=== PATIENT | female | born 1940 | race Caucasian/White ===

== ENCOUNTER 2016-12-05 05:31 | Day surgery (SDC) | payer OTHER ==
[~2016-12-05] VITALS: Ht 154.9 cm; Wt 49.4 kg
--- NOTE | ~2016-12-05 | S ---
[facility] [address] [place] [address] SURGICAL PATH RPT PROCEDURE Name: ADRY MELENDREZ Room #: [place] [facility] [place].#: [id number] Admission: 12/05/16 Date of : 36 Discharge: 12/05/16 Report #: [id number] Path Case #: [id number] PATHOLOGY REPORT COLLECTION DATE: 12/05/2016 RECEIVED DATE: 12/05/2016 SUBMITTING PHYS: Dr. Joe Douglass OTHER PHYS: Dr. Mariusz Glover SPECIMEN(S) RECEIVED: A.Lesion left thigh B.Left inguinal lymph node * * * * * * * * * * * * FINAL DIAGNOSIS: A. 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 - EXTENSIVE LYMPH-VASCULAR SPACE INVASION PRESENT. - Margins of resection free of malignancy. B. 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 SYNOPTIC CANCER STAGING REPORT Specimen Site: Skin structure Histologic Type: Bennington Cell Carcinoma SPECIMEN Procedure: Excision Macroscopic Tumor: Present Primary Tumor Site: Skin Skin of lower limb and hip: left thigh Primary Tumor Site Laterality: Left EXTENT Tumor Size: Greatest dimension (cm): 3.3 Tumor Thickness: Thickness (mm): 11 MARGINS Peripheral Margins: Uninvolved by carcinoma Distance of Carcinoma From Closest Margin: Specify (mm): 10 Specify Location(s), if possible: Specify margin(s): 3:00 Deep Margin: Uninvolved by carcinoma Distance of Carcinoma From Closest Margin: Specify (mm): 6 Specify Location(s), if possible: Specify Margin(s): deep ACCESSORY FINDINGS Lymph-Vascular Invasion: Present Invasion of Bone, Muscle, Fascia, or Cartilage: Not applicable [facility] [address] [place] [address] SURGICAL PATH RPT PROCEDURE Name: ADRY MELENDREZ ANN Room #: [place] [facility] [place].R.#: [id number] Admission: 12/05/16 Date of : 36 Discharge: 12/05/16 Report #: [id number] Path Case #: [id number] (e.g., for superficial biopsy) Mitotic Rate: Specify per mm2: 4 Tumor Infiltrating Lymphocytes: Present, nonbrisk Tumor Growth Pattern: Nodular Presence of Second Malignancy: Present: additional nodules of Bennington cell carcinoma LYMPH NODES (REQUIRED ONLY IF LYMPH NODES ARE PRESENT IN THE SPECIMEN) Number of [place] Nodes Examined: Specify: 0 Total Number of Nodes Examined (sentinel and nonsentinel): Specify: 1 Lymph Nodes Metastasis: Number of Lymph Nodes With Metastases: Specify: 1 Macroscopic Tumor: Present Size of Largest Metastatic Focus (mm): 40 Extranodal Extension: Present STAGE (PTNM) TNM Descriptors: m (multiple) Primary Tumor (pT): pT2: Greater than 2 cm but not more than 5 cm maximum tumor dimension Regional Lymph Nodes (pN): pN1b: Macrometastasis Distant Metastasis (pM): Not applicable COMMENT: [facility] (slides A2 and B3): Dr. Lorin Kolb. Findings are telephoned to Dr. Rafat Logan's staff at 4:05 PM on 12/07/16. (IUV; 12/07/16) PATHOLOGIST: Amberly Carpio M.D. REPORT ELECTRONICALLY SIGNED BY: Amberly Carpio M.D. DATE/TIME: 12/07/2016 16:22 * * * * * * * * * * * * GROSS PATHOLOGY: A. The specimen is received in formalin labeled "Adry Melendrez, lesion left thigh, suture jimenez superior lateral". Received is an oriented ellipse of skin measuring 13.8 x 5.7 x 2.6 cm in greatest dimensions with a suture placed along one edge designating this as the superior lateral aspect. The closest tip will be further designated as the 12:00 margin. The specimen is inked as follows: 12 to 3:00-yellow, 3 to 6:00-blue, and 6 to 12:00-black. The epidermal surface displays a poorly circumscribed, irregular in contour, partially crusted and pink-oviedo to oviedo-brown lesion measuring 3.3 x 2.9 cm, which is 1.3 cm from the closest margin (3 and 9:00). Adjacent to the primary lesion, there is a secondary lesion which is [facility] [address] [place] [address] SURGICAL PATH RPT PROCEDURE Name: ADRY MELENDREZ Room #: DEP [facility].#: [id number] Admission: 12/05/16 Date of : 36 Discharge: 12/05/16 Report #: [id number] Path Case #: [id number] well-circumscribed, slightly raised, glistening and pale oviedo measuring 0.9 x 0.7 cm, which is 0.9 cm from the closest margin (2:00). There is also a tertiary lesion present which is well-circumscribed, irregular in contour and pale oviedo measuring 0.5 x 0.5 cm, which is 0.5 cm from the closest margin (between 3 and 4:00). Near the 9:00 margin, there is a quaternary lesion which is well-circumscribed, flat and light brown measuring 0.6 x 0.3 cm, which is 0.4 cm from the 9:00 margin. The specimen is submitted representatively as follows: A1 12:00 and 6:00 tip A2-A6 artists' booking representative sections from primary lesion A7-A8 artists' booking representative sections from secondary lesion; 2:00 margin in relation to one of the lesions A9 artists' booking representative 12:00 to 3:00 to 6:00 margin along with 3:00 lesion A10 artists' booking representative 6:00 to 9:00 to12:00 margin. A gross photograph is taken. Please see cassette diagram on attached photo for explanation of sections. B. The specimen is received in formalin labeled "Adry Melendrez, left inguinal lymph node". Received is a segment of yellow-oviedo lobulated tissue measuring 4.7 x 3.2 x 2.9 cm in greatest dimensions. Dissection and palpation of the specimen reveals a single lymph node measuring 4.0 cm in maximum dimensions. Sectioning through the lymph node reveals white to pale pink cut surfaces. The specimen is submitted representatively in cassettes B1 through B4. (CAA; 12/06/2016) CLINICAL HISTORY: Left groin lesion INITIAL CPT CODE(S): A; 90919 B; 36756 Professional services performed by [facility] at [facility] [address], [place] [address] Technical services performed by [facility] at [address] [place] [address]. [facility] [address] [address] PHONE: [phone] DIRECTOR: Wilner Mccormick M.D. [facility] [address] [place] [address] SURGICAL PATH RPT PROCEDURE Name: ADRY MELENDREZ Room #: DEP [facility] [place] Claudio#: [id number] Admission: 12/05/16 Date of : 36 Discharge: 12/05/16 Report #: [id number] Path Case #: [id number] * * * END OF REPORT * * *
--- NOTE | ~2016-12-05 | O ---
[facility] [place] [address] OPERATIVE REPORT Name: OLINDA SOLIS Room #: 150-3 [facility] M.R.#: [id number] Admission: 12/05/16 Attend Phys: Joe Douglass MD Discharge: Date of : 36 Report #: [id number] THIS REPORT FOR: //name// CC: John Douglass DATE OF SERVICE: 12/05/2016 PREOPERATIVE DIAGNOSIS: Ulcerative lesion in the left upper anterior thigh with satellite nodules. POSTOPERATIVE DIAGNOSIS: Ulcerative lesion in the left upper anterior thigh with satellite nodules plus an enlarged left inguinal node. PROCEDURES PERFORMED: 1. Wide excision of left upper thigh skin lesion likely skin cancer with satellite nodules. 2. Excision of enlarged right inguinal node. COMPLICATIONS: None. ESTIMATED BLOOD LOSS: 15 mL. DESCRIPTION OF PROCEDURE : The patient is under IV sedation, the groin is prepped and draped in a sterile fashion using Betadine. Timeout was performed. IV antibiotic was given. The skin lesion is about 2.5 cm. There is a nodule that is inferior to this that measures about a cm. There are a couple of nodules adjacent to the ulcerative lesion. These appeared to be satellite nodules. Likely skin cancer. An ellipse was drawn around the main lesion and then the satellite nodules. This is about 10 cm in length and about 5 cm wide. This was anesthetized with 0.25% Marcaine. This was then excised. After I removed this, orientation was given for the pathologist. Underneath this an enlarged palpable node was identified. This was free from the surrounding subcutaneous tissue, the anterior tributary of the saphenous vein was free and divided and then ligated with 2-0 Vicryl tie. The lymph node was sitting on the top of this vein. The lymph node was free and clips were applied at the pedicles. The node was sent to pathology. Suspect this is either reactive node due to the ulceration or metastatic disease. The patient tolerated the procedure well. The subcutaneous tissue was closed with 3-0 PDS, skin was closed with 4-0 nylon. By: [id number] Joe Douglass MD /nt
[~2016-12-05 05:31] MED LIST: ALEVE220 MG PO; ASPIRIN EC81 M1 PO; ATIVAN0.5 MG PO; BENADRYL25 MG PO; CARAFATE 1 GM TA1 G1; CARAFATE 1 GM TA1 G1 PO; CENTRUM SILVER1 EAC4 PO; CITRATE OF MAG296 ML; COLACE100 MG PO; DESYREL50 MG PO; DIFLUCAN40 MG/1 ML; Docusate Sodium PO; EFFEXOR75 MG PO; ENOXAPARIN30 MG/0.1 SUBQ; FLUCONAZOLE PO; GLYCOLAX POWDER17 G1 PO; HYDROCODON-ACE1 EAC7 PO; HYDROCODON-ACE1 EACH PO; IBUPROFEN 200200 M1; IBUPROFEN 200200 M1 PO; IBUPROFEN 400400 M2 PO; IRON325 PO; LEVOTHYROXIN0.025 MG PO; MOM PO; MOTION RELIEF25 MG PO; Milk Of Magnesia Conc. PO; NORCO 5-325 TA1 EACH PO; PEPCID20 MG PO; PEPCID40 MG PO; PERCOCET 5-3251 EACH PO; PROTONIX40 M1 PO; PROTONIX40 M2; PROTONIX40 M2 PO; Pantoprazole Sodium 40 Mg Tablet PO; SYNTHROID75 MCG PO; TIROSINT75 MCG PO; TOPROL XL25 MG PO; TRAMADOL 50 MG50 MG PO; TRINATE TABLET1 TAB PO; TUMS PO; TYLENOL325 MG PO; ULTRAM 50MG TAB50 MG; VITAMIN B-1100 M1 PO; ZOFRAN ODT4 MG PO
[2016-12-05 07:37] VITALS: BP 141/71
[2016-12-05] MEDS ORDERED: NORCO 5-325 TA1 EACH PO (09:46)
[2016-12-05 10:27] VITALS: BP 141/71
== END 2016-12-05 06:17 | disposition home or self-care (01) ==
LOC: TBA 05:31 → OR 05:31
DX: C4A.72 Merkel cell carcinoma of left lower limb, including hip (principal); C7B.1 Secondary Merkel cell carcinoma; K21.9 Gastro-esophageal reflux disease without esophagitis; Z90.710 Acquired absence of both cervix and uterus; Z98.41 Cataract extraction status, right eye; Z98.42 Cataract extraction status, left eye; Z96.1 Presence of intraocular lens; Z98.890 Other specified postprocedural states
CPT/HCPCS: 50010; 50101; 50386; 51301; 56525; 56526; 56527; 62110; 62850; 70005